=== PATIENT | male | born 1950 | race Two or more races ===

== ENCOUNTER 2018-07-28 09:02 | Emergency (ER) | payer MEDICARE, MEDICAID ==
[~2018-07-28] VITALS: Ht 165.1 cm; Wt 88.0 kg
[2018-07-28 09:12] VITALS: BP 152/89
[2018-07-28] MEDS ORDERED: METF1000 PO (09:32)
[2018-07-28] MEDS ORDERED: IBUP-1222 PO (09:33)
[2018-07-28] MEDS ORDERED: GABA300C10 PO (09:33)
[2018-07-28] MEDS ORDERED: LOSA100T7 PO (09:34)
[2018-07-28] MEDS ORDERED: AMLO5TAB4 PO (09:34)
[2018-07-28] MEDS ORDERED: TAMS0.4C2 PO (09:35)
[2018-07-28] MEDS ORDERED: OXYcodone/APAP 5/325MG TABLET PO ONE (10:30)
[2018-07-28] MEDS ORDERED: OXYcodone/APAP 5/325MG TABLET ONE (10:44)
== END 2018-07-28 11:12 | disposition home or self-care (01) ==
LOC: ED 10:09
DX: M54.16 Radiculopathy, lumbar region (principal); I10 Essential (primary) hypertension; E11.9 Type 2 diabetes mellitus without complications
CPT/HCPCS: 99283